=== PATIENT | female | born 1965 | race Caucasian/White ===

== ENCOUNTER 2018-10-01 18:00 | Emergency (ER) | payer OTHER ==
--- NOTE | 2018-10-01 19:17 | ED ---
Abdominal Pain/Female - HPI Summary HPI Summary: A 52 y/o female presents to [facility] with a chief complaint of intermittent LUQ abdominal pain for one week. She claims that when she stands up she has no discomfort, when she sits down she feels "like there is a ball there". At the onset of her pain her lower back would hurt. Pt denies any fever, chills, erythema of eyes, sore throat, CP, SOB, cough, N/V, dysuria, hematuria, myalgia , edema, rash, or dizziness. She has a Hx of diverticulitis but states that this pain is different. She claims that her gallbladder and appendix are still there. SHx 3 c-sections. She claims that her bowel movements occur once per day. She is not being treated for high blood pressure stating that 8 weeks ago her BP was fine. - History of Current Complaint Chief Complaint: EDAbdPain Stated Complaint: DISCOMFORT UNDER LEFT RIB CAGE PER PT Time Seen by Provider: 10/01/18 18:44 Hx Obtained From: Patient Hx Last Menstrual Period: Mar 2013 Onset/Duration: Sudden Onset, Lasting Days, Still Present Timing: Intermittent Episode Lasting - hours Severity Initially: Mild Severity Currently: Mild Pain Intensity: 3 Pain Scale Used: 0-10 Numeric Location: Discrete At: LUQ Radiates: Yes Radiates to: Other - left shoulder blade Character: Other: - unable to describe Aggravating Factor(s): Other: - sitting Alleviating Factor(s): Position - standing Associated Signs and Symptoms: Negative: Fever, Cough, Chest Pain, Dizzy, Nausea , Vomiting Allergies/Adverse Reactions: Allergies Allergy/AdvReac Type Severity Reaction Status Date / Time No Known Allergies Allergy Verified 12/11/13 14:15 PMH/Surg Hx/FS Hx/Imm Hx Endocrine/Hematology History: Reports: Hx Thyroid Disease Musculoskeletal History: Reports: Hx Rheumatoid Arthritis - Cancer History Hx Chemotherapy: No Hx Radiation Therapy: No - Surgical History Surgery Procedure, Year, and Place: c-sections Infectious Disease History: No Infectious Disease History: Denies: History Other Infectious Disease, Traveled Outside the [place] in Last 30 Days - Family History Known Family History: Positive: Other - spleen infection - brother - Social History Alcohol Use: Daily Alcohol Amount: 1 beer daily Substance Use Type: Reports: Marijuana Smoking Status (MU): Former Smoker Type: Cigarettes Have You Smoked in the Last Year: No Review of Systems Negative: Fever, Chills Negative: Erythema Negative: Sore Throat Negative: Chest Pain Negative: Shortness Of Breath, Cough Positive: Abdominal Pain. Negative: Vomiting, Nausea Negative: dysuria, hematuria Positive: Other - positive: pain radiating to left shoulder blade. Negative: Myalgia, Edema Negative: Rash Neurological: Negative - dizziness All Other Systems Reviewed And Are Negative: Yes Physical Exam - Summary Physical Exam Summary: Constitutional: Well-developed, Well-nourished, Alert. (-) Distressed Skin: Warm, Dry HENT: Normocephalic; Atraumatic Eyes: Conjunctiva normal Neck: Musculoskeletal ROM normal neck. (-) JVD, (-) Stridor, (-) Tracheal deviation Cardio: Rhythm regular, rate normal, Heart sounds normal; Intact distal pulses; The pedal pulses are 2+ and symmetric. Radial pulses are 2+ and symmetric. (-) Murmur Pulmonary/Chest wall: Effort normal. (-) Respiratory distress, (-) Wheezes, (-) Rales Abd: Soft, (-) tenderness, (-) Distension, (-) Guarding, (-) Rebound Musculoskeletal: (-) Edema Lymph: (-) Cervical adenopathy Neuro: Alert, Oriented x3 Psych: Mood and affect Normal Triage Information Reviewed: Yes Vital Signs On Initial Exam: Initial Vitals Temp Pulse Resp BP Pulse Ox 97.4 F 76 20 227/110 98 10/01/18 18:04 10/01/18 18:04 10/01/18 18:04 10/01/18 18:04 10/01/18 18:04 Vital Signs Reviewed: Yes Diagnostics - Vital Signs Vital Signs Temp Pulse Resp BP Pulse Ox 10/01/18 19:00 51 16 180/93 98 10/01/18 18:44 58 99 10/01/18 18:43 65 212/102 98 10/01/18 18:04 97.4 F 76 20 227/110 98 - Laboratory Result Diagrams: 10/01/18 19:12 10/01/18 19:12 Lab Statement: Any lab studies that have been ordered have been reviewed, and results considered in the medical decision making process. - CT abdomen/pelvis CT Interpretation Completed By: Radiologist Summary of CT Findings: 1. No CT findings to correlate with patient's symptomatology. 2. Multiple simple hepatic cysts. No followup indicated. 3. Distal colonic diverticulosis. ED physician has reviewed this imaging report. - EKG 19:44 Cardiac Rate: Bradycardia - 54 bpm EKG Rhythm: Sinus Bradycardia Summary of EKG Findings: Sinus bradycardia at 54 bpm, no STEMI. Re-Evaluation - Re-Evaluation First Eval Re-Evaluation Time: 22:01 Change: Improved Comment: Pt is pain free. Abdominal Pain Fem Course/Dx - Course Course Of Treatment: A 52 y/o female presents to [facility] with a chief complaint of intermittent LUQ abdominal pain for one week. She claims that when she stands up she has no discomfort, when she sits down she feels "like there is a ball there". At the onset of her pain her lower back would hurt. Pt denies any fever, chills, erythema of eyes, sore throat, CP, SOB, cough, N/V, dysuria, hematuria, myalgia, edema, rash, or dizziness. The physical exam was unremarkable. All discomfort is positional only when sitting down or twisting left arm back. Pain is non-exertional. In the ED course the patient was given Iohexol IV. Bloodwork, chemistry and urines obtained and are WNL. Abdomen/ pelvis CT impression: 1. No CT findings to correlate with patient's symptomatology. 2. Multiple simple hepatic cysts. No followup indicated. 3. Distal colonic diverticulosis. The patient will be discharged home and follow up with her PCP. She is agreeable with this plan. - Diagnoses Provider Diagnoses: LUQ abdominal pain Discharge - Sign-Out/Discharge Documenting (check all that apply): Patient Departure - PA Patient Received Moderate/Deep Sedation with Procedure: No - Discharge Plan Condition: Stable Disposition: HOME Patient Education Materials: High Fiber Diet (ED) Referrals: Jhonatan Martins MD [Primary Care Provider] - (2-3 days) Additional Instructions: RETURN TO THE EMERGENCY DEPARTMENT FOR CHANGING OR WORSENING SYMPTOMS - Attestation Statements Document Initiated by Scribe: Yes Documenting Scribe: Vega Jacob Provider For Whom Scribe is Documenting (Include Credential): Kaushik Fournier MD Scribe Attestation: Vega Vazquez, scribed for Kaushik Fournier MD on 10/01/18 at 2205. Status of Scribe Document: Ready
[2018-10-01 19:18] LABS: ABS Eosinophils 0.1 10^3/ul (0-0.6); ABS Lymphocytes 1.6 10^3/ul (1.0-4.8); ABS Monocytes 0.4 10^3/ul (0-0.8); ABS Neutrophils 2.3 10^3/ul (1.5-7.7); Eosinophil % 1.4 %; Hematocrit 42 % (35-47); Hemoglobin 14.3 g/dL (12.0-16.0); Lymphocyte % 37.2 %; Mean Corpuscular HGB Conc 34 g/dL (31-36); Mean Corpuscular Hemoglobin 30 pg (27-31); Mean Corpuscular Volume 89 fL (80-97); Mean Platelet Volume 7.2 fL (7.4-10.4); Nucleated Red Blood Cells % 0.1; Platelet Count 184 10^3/uL (150-450); Red Blood Count 4.71 10^6 /uL (3.70-4.87); Red Cell Distribution Width 14 % (10.5-15); White Blood Count 4.4 10^3/uL (3.5-10.8)
[2018-10-01 19:38] LABS: ALT 8 U/L (7-52); AST 18 U/L (13-39); Albumin 4.5 g/dL (3.2-5.2); Albumin/Globulin Ratio 1.6 (1-3); Alkaline Phosphatase 68 U/L (34-104); Anion Gap 5 mmol/L (2-11); BUN/Creatinine Ratio 14.5 (8-20); Blood Urea Nitrogen 12 mg/dL (6-24); C Reactive Protein < 1.00 mg/L (<8.01); CO2 Carbon Dioxide 29 mmol/L (22-32); Calcium 9.3 mg/dL (8.6-10.3); Chloride 107 mmol/L (101-111); EGFR African American 86.7 (>60); EGFR Non-African American 71.6 (>60); Globulin 2.8 g/dL (2-4); Glucose 96 mg/dL (70-100); Sodium 141 mmol/L (135-145); Total Protein 7.3 g/dL (6.4-8.9)
[2018-10-01 21:15] LABS: Urine Appearance Clear; Urine Bilirubin Negative (Negative); Urine Blood Negative (Negative); Urine Color Straw; Urine Glucose Negative (Negative); Urine Ketones Negative (Negative); Urine Nitrite Negative (Negative); Urine Protein Negative (Negative); Urine Specific Gravity 1.005 (1.010-1.030); Urine Urobilinogen Negative (Negative)
[2018-10-01] MEDS ORDERED: Iohexol 300* (CONTRAST) 10 ML SDV IV ONE (21:21)
[2018-10-01 22:07] VITALS: BP 150/81
== END 2018-10-01 22:18 | disposition home or self-care (01) ==
LOC: ED 18:00
DX: R10.12 Left upper quadrant pain (principal); K57.30 Diverticulosis of large intestine without perforation or abscess without bleeding; K76.89 Other specified diseases of liver; E07.9 Disorder of thyroid, unspecified; M06.9 Rheumatoid arthritis, unspecified; Z87.891 Personal history of nicotine dependence
CPT/HCPCS: 36415; 74177; 80053; 81003; 83605; 83690; 84484; 85025; 86140; 93005; 99283; Q9967

== ENCOUNTER 2019-03-30 09:14 | Emergency (ER) | payer OTHER ==
[2019-03-30 09:39] VITALS: BP 156/86
--- NOTE | 2019-03-30 10:31 | UC ---
Lower Extremity/Ankle HPI - HPI Summary HPI Summary: Patient is a 53-year-old female presenting with right ankle pain, swelling, and bruising since yesterday afternoon after she missed a few steps and fell and twisted it. Patient notes pain with walking that she was at the back of her calf. Notes pain with dorsiflexion and plantar flexion. Denies numbness and tingling. Denies decreased strength. The patient states she is still able to ambulate but with some pain. States she wants to make sure that the ankle was not broken. - History of Current Complaint Chief Complaint: UCLowerExtremity Stated Complaint: aNKLE iNJURY Hx Obtained From: Patient Hx Last Menstrual Period: Mar 2013 Onset/Duration: Sudden Onset Severity Initially: Moderate Severity Currently: Moderate Pain Intensity: 4 Pain Scale Used: 0-10 Numeric - Allergies/Home Medications Allergies/Adverse Reactions: Allergies Allergy/AdvReac Type Severity Reaction Status Date / Time No Known Allergies Allergy Verified 03/30/19 09:39 Home Medications: Home Medications Ibuprofen TAB* [Advil TAB*] 400 mg PO Q6H PRN 03/30/19 [History Confirmed ] PMH/Surg Hx/FS Hx/Imm Hx Previously Healthy: Yes - Surgical History Surgical History: Yes Surgery Procedure, Year, and Place: c-sections - Family History Known Family History: Positive: Other - spleen infection - brother - Social History Alcohol Use: Daily Alcohol Amount: 1 beer daily Substance Use Type: Marijuana Substance Use Comment - Amount & Last Used: once a month Smoking Status (MU): Former Smoker Type: Cigarettes Have You Smoked in the Last Year: No When Did the Patient Quit Smoking/Using Tobacco: 20+ yrs Review of Systems All Other Systems Reviewed And Are Negative: No Constitutional: Positive: Negative Respiratory: Positive: Negative Cardiovascular: Positive: Negative Gastrointestinal: Positive: Negative Musculoskeletal: Positive: Arthralgia, Decreased ROM, Edema Neurological: Negative: Paresthesia, Numbness Physical Exam Triage Information Reviewed: Yes Appearance: Well-Appearing, No Pain Distress, Well-Nourished Vital Signs: Initial Vital Signs Temp 97.8 F 03/30/19 09:35 Pulse 69 03/30/19 09:35 Resp 18 03/30/19 09:35 BP 156/86 03/30/19 09:35 Pulse Ox 99 03/30/19 09:35 Vital Signs Reviewed: Yes Eyes: Positive: Conjunctiva Clear ENT: Positive: Hearing grossly normal Neck: Positive: Supple Respiratory: Positive: No respiratory distress Cardiovascular: Positive: Pulses Normal - Strong pedal pulses bilaterally, Brisk Capillary Refill Musculoskeletal: Positive: Strength Intact, No Edema - Right anterolateral ankle , ROM Limited @ - Right plantar flexion and dorsiflexion, Other: - Tenderness to palpation of right lateral ankle and right posterior lower calf. Negative Jones test Neurological Exam: Other - Sensation grossly intact Neurological: Positive: Alert Skin Exam: Other - Ecchymosis noted over anterolateral right ankle Diagnostics - Radiology R ankle Radiology Interpretation Completed By: Radiologist Summary of Radiographic Findings: FINDINGS: Soft tissue swelling is noted along the anterolateral aspect of the ankle. No fracture is seen. Joint spaces appear maintained. IMPRESSION: SOFT TISSUE SWELLING, NO FRACTURE IS SEEN. Lower Extremity Course/Dx - Course Course Of Treatment: Discussed negative x-rays with patient. Instructed to continue symptomatic treatment including use of Hamilton wrap. Instructed to follow up with PCP or orthopedics if pain persists. Instructed to go to ED if symptoms worsen. Patient voiced understanding and agreed with treatment plan. - Differential Dx/Diagnosis Provider Diagnosis: Right ankle sprain Discharge ED - Sign-Out/Discharge Documenting (check all that apply): Patient Departure All imaging exams completed and their final reports reviewed: Yes - Discharge Plan Condition: Stable Disposition: HOME Patient Education Materials: Ankle Sprain (ED), Ankle Stirrup Splint (ED) Referrals: Jhonatan Martins MD [Primary Care Provider] - If Needed Jhonatan Turcios MD [Medical Doctor] - If Needed Additional Instructions: As discussed, the xrays of the ankle did not show any fractures. Rest, ice, elevate, and use your hamilton wrap and ankle splint to help relieve ankle pain. You may also use over the counter pain medications as directed for relief of pain. If pain does not resolve, follow up with your PCP or orthopedics as listed below. Return or go to the emergency room if pain worsens, the foot becomes cold and numb, or you are not able to bear weight. - Billing Disposition and Condition Condition: STABLE Disposition: Home
== END 2019-03-30 11:09 | disposition home or self-care (01) ==
LOC: UCEAST 09:14
DX: S93.401A Sprain of unspecified ligament of right ankle, initial encounter (principal); S90.01XA Contusion of right ankle, initial encounter; Z87.891 Personal history of nicotine dependence; W10.9XXA Fall (on) (from) unspecified stairs and steps, initial encounter; X50.1XXA Overexertion from prolonged static or awkward postures, initial encounter; Y92.9 Unspecified place or not applicable
CPT/HCPCS: 99212; G0463

== ENCOUNTER 2019-07-13 13:42 | Emergency (ER) | payer OTHER ==
[2019-07-13 13:52] VITALS: BP 156/99
--- NOTE | 2019-07-13 14:34 | UC ---
Abdominal Pain Female HPI - HPI Summary HPI Summary: 53 yo woman who awoke this morning with fever and malaise. 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 She has no sore throat, cough, urinary symptoms. Passed a normal stool today. No sore throat. Headache earlier today has resolved. She has a hx of diverticulitis in the past which has felt very different to her. - History of Current Complaint Chief Complaint: UCGeneralIllness Stated Complaint: FEVER, LOWER RT SIDE PAIN Time Seen by Provider: 07/13/19 14:31 Hx Obtained From: Patient Hx Last Menstrual Period: Mar 2013 Onset/Duration: Sudden Onset, Lasting Hours Timing: Constant Severity Initially: Moderate Severity Currently: Moderate Pain Intensity: 5 Location: Discrete At: RLQ Radiates: No Character: Dull Aggravating Factor(s): Nothing Allergies/Adverse Reactions: Allergies Allergy/AdvReac Type Severity Reaction Status Date / Time No Known Allergies Allergy Verified 07/13/19 13:52 PMH/Surg Hx/FS Hx/Imm Hx Endocrine History: Hypothyroidism, Dyslipidemia - Surgical History Surgical History: Yes Surgery Procedure, Year, and Place: c-sections - Family History Known Family History: Positive: Other - spleen infection - brother - Social History Occupation: Employed Full-time Lives: With Family Alcohol Use: Daily Alcohol Amount: 1 beer daily Substance Use Type: Marijuana Substance Use Comment - Amount & Last Used: once a month Smoking Status (MU): Former Smoker Type: Cigarettes Have You Smoked in the Last Year: No When Did the Patient Quit Smoking/Using Tobacco: 20+ yrs Review of Systems All Other Systems Reviewed And Are Negative: Yes Constitutional: Positive: Fever, Fatigue Skin: Positive: Negative Eyes: Positive: Negative ENT: Negative: Sore Throat, Ear Ache, Nasal Discharge, Sinus Congestion Respiratory: Negative: Shortness Of Breath, Cough Cardiovascular: Negative: Palpitations, Chest Pain Gastrointestinal: Positive: Abdominal Pain Genitourinary: Positive: Negative. Negative: Dysuria, Hematuria, Frequency Motor: Positive: Negative Neurovascular: Positive: Negative Musculoskeletal: Positive: Negative Neurological/Mental Status: Positive: Headache - mild this morning. Psychological: Positive: Negative Is Patient Immunocompromised?: No Physical Exam Triage Information Reviewed: Yes Appearance: No Pain Distress, Ill-Appearing - looks flushed and mildly unwell, Obese Vital Signs: Initial Vital Signs Temp 98.3 F 07/13/19 13:48 Pulse 82 07/13/19 13:48 Resp 16 07/13/19 13:48 BP 156/99 07/13/19 13:48 Pulse Ox 100 07/13/19 13:48 Vital Signs Reviewed: Yes ENT: Positive: Pharynx normal, TMs normal Neck: Positive: Supple, Nontender, No Lymphadenopathy Respiratory: Positive: Lungs clear, Normal breath sounds Cardiovascular: Positive: RRR, No Murmur Abdomen Description: Positive: No Organomegaly, Soft, Other: - very mild tenderness in RLQ without guarding or rebound.. Negative: CVA Tenderness (R), CVA Tenderness (L), Distended Bowel Sounds: Positive: Present Musculoskeletal Exam: Normal Neurological Exam: Normal Diagnostics - Laboratory Lab Results: rapid flu and urine analysis normal. Abd Pain Female Course/Dx - Course Course Of Treatment: observation, hydration, follow up blood pressure. Discussed early symptoms of illness, many possibilities, and aticipate that symptoms will evolve. - Differential Dx/Diagnosis Differential Diagnosis: Appendicitis, Renal Colic, Other - UTI Provider Diagnosis: Fever and chills Discharge ED - Sign-Out/Discharge Documenting (check all that apply): Patient Departure All imaging exams completed and their final reports reviewed: No Studies - Discharge Plan Condition: Stable Disposition: HOME Patient Education Materials: Fever in Adults (ED) Referrals: Jhonatan Martins MD [Primary Care Provider] - Additional Instructions: At this time, the cause of your fever is uncertain; you have tested negative for inlfuenza and your urine is normal. It is possible to have a negative test for flu, and still have the flu. Rest at home, and ensure that you increase fluids and use ibuprofen for fever and aches. If the pain increases, pleaese go directly to the emergency room for further evaluation. - Billing Disposition and Condition Condition: STABLE Disposition: Home
[2019-07-13 15:17] LABS: Influenza A Molecular Negative (Negative); Influenza B Molecular Negative (Negative)
== END 2019-07-13 15:40 | disposition home or self-care (01) ==
LOC: UCEAST 13:42
DX: R50.9 Fever, unspecified (principal); E66.9 Obesity, unspecified; R53.83 Other fatigue; R53.81 Other malaise; R10.813 Right lower quadrant abdominal tenderness; Z87.891 Personal history of nicotine dependence
CPT/HCPCS: 81003; 99211; G0463